=== PATIENT | male | born 1975 | race Caucasian/White ===

== ENCOUNTER 2017-04-03 18:23 | Emergency (ER) | payer OTHER ==
[~2017-04-03] VITALS: Ht 188 cm; Wt 97.5 kg
[2017-04-03 18:26] VITALS: BP 134/79
[2017-04-03] MEDS ORDERED: METHOCARBAMOL 750 MG TABLET PO ONE (19:00)
[2017-04-03] MEDS ORDERED: KETOROLAC 30 MG/1 ML IM ONE (19:00)
[2017-04-03] MEDS ORDERED: KETOROLAC 30 MG/1 ML ONE (19:08)
[2017-04-03] MEDS ORDERED: METHOCARBAMOL 750 MG TABLET ONE (19:08)
== END 2017-04-03 19:32 | disposition home or self-care (01) ==
LOC: ED 19:00
DX: S39.012A Strain of muscle, fascia and tendon of lower back, initial encounter (principal); X50.0XXA Overexertion from strenuous movement or load, initial encounter; Y93.89 Activity, other specified; Y92.69 Other specified industrial and construction area as the place of occurrence of the external cause; Y99.8 Other external cause status
CPT/HCPCS: 72110; 99284

== ENCOUNTER 2018-12-05 00:36 | Emergency (ER) | payer SELFPAY ==
[~2018-12-05] VITALS: Ht 188 cm; Wt 91.9 kg
--- NOTE | 2018-12-05 00:50 | NUR ---
ACCREDITED LEGAL SECRETARY: [facility] SENT FROM [facility]
[2018-12-05 01:55] LABS: CULTURE INDICATED? YES; MICROSCOPIC AUTO
[2018-12-05] MEDS ORDERED: CEFTRIAXONE 250 MG ONE (02:18)
[2018-12-05] MEDS ORDERED: AZITHROMYCIN 500 MG TABLET ONE (02:18)
[2018-12-05] MEDS ORDERED: AZITHROMYCIN 500 MG TABLET PO ONE (02:30)
[2018-12-05] MEDS ORDERED: CEFTRIAXONE 250 MG IM ONE (02:30)
[2018-12-05 02:34] VITALS: BP 122/78
== END 2018-12-05 02:36 | disposition home or self-care (01) ==
LOC: ED 02:30
DX: A56.01 Chlamydial cystitis and urethritis (principal); A54.01 Gonococcal cystitis and urethritis, unspecified
CPT/HCPCS: 81001; 87077; 87086; 87186; 87491; 87591; 96372; 99283; J0696